=== PATIENT | male | born 1955 | race Two or more races ===

== ENCOUNTER 2018-07-21 08:04 | Emergency (ER) | payer OTHER ==
[2018-07-21 09:10] LABS: APPEARANCE,URINE CLEAR; BILIRUBIN,URINE NEGATIVE (NEGATIVE); COLOR,URINE YELLOW; GLUCOSE, URINE NEGATIVE (NEGATIVE); KETONES,URINE NEGATIVE (NEGATIVE); LEUKOCYTE ESTERASE,URINE NEGATIVE (NEGATIVE); NITRITE,URINE NEGATIVE (NEGATIVE); PROTEIN,URINE NEGATIVE (NEGATIVE); UROBILINOGEN,URINE NEGATIVE mg/dL (<2.0)
--- NOTE | 2018-07-21 09:31 | ER Document Report ---
ED General - General Chief Complaint: Flank Pain Stated Complaint: LOWER BACK PAIN Time Seen by Provider: 07/21/18 08:42 - HPI Notes: Patient is a 63-year-old male that presents to the emergency department for chief complaint of right flank pain. Patient had acute onset of pain in his right lower back/flank last night. The pain is sharp and radiates around into his right groin. He denies any dysuria but does state he is having a difficult time urinating. He denies seeing any blood in his urine. He does have a history of kidney stones and states this feels the same. He denies any nausea vomiting fevers chills or diarrhea. Patient states he drank a few shots this morning and took some ibuprofen and his pain has significantly improved. He does endorse daily alcohol consumption. He denies injury or trauma. He denies saddle anesthesia and lower extremity numbness or weakness. He denies IV drug use. Past Medical History: Arthritis Past Surgical History: Right shoulder rotator cuff repair Social History: Daily alcohol, daily tobacco, denies drug use Family History: Reviewed and noncontributory for presenting illness Allergies: Reviewed, see documented allergy list. REVIEW OF SYSTEMS: CONSTITUTIONAL : No fever No chills No diaphoresis No recent illness EENT: No vision changes No congestion No sore throat CARDIOVASCULAR: No chest pain No palpitations RESPIRATORY: No shortness of breath No cough No difficulty breathing GASTROINTESTINAL: No abdominal pain No nausea No vomiting No diarrhea GENITOURINARY: No dysuria No hematuria Right flank pain difficulty urinating MUSCULOSKELETAL: No back pain No leg pain No arm pain SKIN: No rashes No lesions LYMPHATIC: No swollen, enlarged glands. NEUROLOGICAL: No lightheadedness No headache No weakness No paresthesias PSYCHIATRIC: No anxiety No depression PHYSICAL EXAMINATION: Vital signs reviewed, nursing noted reviewed. GENERAL: Well-appearing, well-nourished and in no acute distress. HEAD: Atraumatic, normocephalic. EYES: Eyes appear normal, extraocular movements intact, sclera anicteric, co njunctiva are normal. ENT: nares patent, oropharynx clear without exudates. Moist mucous membranes. NECK: Normal range of motion, supple without lymphadenopathy LUNGS: Breath sounds clear to auscultation bilaterally and equal. No wheezes rales or rhonchi. HEART: Regular rate and rhythm without murmurs ABDOMEN: Soft, nontender, normoactive bowel sounds. No rebound, guarding, or rigidity. No masses appreciated. Back: Right lumbar paraspinal muscle tenderness, no peritoneal signs with CVA percussion bilaterally. EXTREMITIES: Nontender, good range of motion, no pitting or edema. NEUROLOGICAL: No focal neurological deficits. Moves all extremities spontaneously Motor and sensory grossly intact on exam. PSYCH: Normal mood, normal affect. SKIN: Warm, Dry, normal turgor, no rashes or lesions noted on exposed skin - Related Data Allergies/Adverse Reactions: No Known Allergies Allergy (Unverified 07/21/18 08:05) Past Medical History - Social History Smoking Status: Current Every Day Smoker Family History: Reviewed & Not Pertinent Patient has suicidal ideation: No Patient has homicidal ideation: No Renal/ Medical History: Denies: Hx Peritoneal Dialysis Physical Exam - Vital signs Vitals: Temp Pulse Resp BP Pulse Ox 98.1 F 95 16 129/73 H 99 07/21/18 08:09 07/21/18 08:09 07/21/18 08:09 07/21/18 08:09 07/21/18 08:09 Course - Re-evaluation Re-evalutation: 07/21/18 09:31 Vitals reviewed. Nursing notes reviewed. Patient is awake and in no acute distress. He took ibuprofen as well as alcohol prior to arrival and states his pain is much better and he is not requiring further pain medication. His u rinalysis is negative for infection or blood however he is still complaining of flank pain. CT will be ordered to evaluate for underlying ureterolithiasis. 07/21/18 11:48 Patient reevaluated and has remained hemodynamically stable. To ambulate without any difficulty. His CT scan shows no ureterolithiasis or other acute abnormality. Patient's lab work is unremarkable. He requested that I look at a rash on his scrotum which he states appeared in the last 1-2 weeks. He has a small skin tag on his lateral right scrotum with no surrounding erythema. There is no other rash. Patient will follow with his primary care doctor regarding his skin tag if it is irritating him. He will take ibuprofen at home as needed for pain. I counseled him on decreasing his alcohol consumption which he agreed with. He is stable at discharge. Laboratory 07/21/18 07/21/18 07/21/18 08:45 08:45 08:45 WBC 5.9 RBC 4.20 L Hgb 13.8 Hct 40.4 MCV 96 MCH 32.9 MCHC 34.2 RDW 14.3 H Plt Count 326 Seg Neutrophils % 61.8 Lymphocytes % 25.2 Monocytes % 7.4 Eosinophils % 4.5 Basophils % 1.1 Absolute Neutrophils 3.7 Absolute Lymphocytes 1.5 Absolute Monocytes 0.4 Absolute Eosinophils 0.3 Absolute Basophils 0.1 Sodium Potassium Chloride Carbon Dioxide Anion Gap BUN Creatinine Est GFR ( Amer) Est GFR (Non-Af Amer) Glucose Calcium Urine Color YELLOW Urine Appearance CLEAR Urine pH 5.0 Ur Specific [place] 1.020 Urine Protein NEGATIVE Urine Glucose (UA) NEGATIVE Urine Ketones NEGATIVE Urine Blood NEGATIVE Urine Nitrite NEGATIVE Urine Bilirubin NEGATIVE Urine Urobilinogen NEGATIVE Ur Leukocyte Esterase NEGATIVE Urine WBC (Auto) 1 Urine RBC (Auto) 0 U Hyaline Cast (Auto) 3 Urine Bacteria (Auto) TRACE Squamous Epi Cells Auto <1 Urine Mucus (Auto) RARE Urine Ascorbic Acid NEGATIVE Chlamydia DNA (PCR) NOT DETECTED N.gonorrhoeae DNA (PCR) NOT DETECTED 07/21/18 08:45 WBC RBC Hgb Hct MCV MCH MCHC RDW Plt Count Seg Neutrophils % Lymphocytes % Monocytes % Eosinophils % Basophils % Absolute Neutrophils Absolute Lymphocytes Absolute Monocytes Absolute Eosinophils Absolute Basophils Sodium 142.2 Potassium 4.4 Chloride 110 H Carbon Dioxide 23 Anion Gap 9 BUN 18 Creatinine 1.05 Est GFR ( Amer) > 60 Est GFR (Non-Af Amer) > 60 Glucose 72 L Calcium 9.2 Urine Color Urine Appearance Urine pH Ur Specific [place] Urine Protein Urine Glucose (UA) Urine Ketones Urine Blood Urine Nitrite Urine Bilirubin Urine Urobilinogen Ur Leukocyte Esterase Urine WBC (Auto) Urine RBC (Auto) U Hyaline Cast (Auto) Urine Bacteria (Auto) Squamous Epi Cells Auto Urine Mucus (Auto) Urine Ascorbic Acid Chlamydia DNA (PCR) N.gonorrhoeae DNA (PCR) Abdomen/Pelvis CT 07/21/18 09:29 IMPRESSION: 1. No noncontrast CT findings to explain right flank pain. 2. No evidence of urinary tract calculus. 3. Normal appendix. 4. Hepatic steatosis. 5. Calcific sludge or small gallstones in the gallbladder without evidence of acute cholecystitis. 07/21/18 11:53 - Vital Signs Vital signs: Temp Pulse Resp BP Pulse Ox 98.1 F 95 16 129/73 H 99 01/17/19 08:09 07/21/18 08:09 07/21/18 08:09 07/21/18 08:09 07/21/18 08:09 - Laboratory Result Diagrams: 07/21/18 08:45 07/21/18 08:45 Laboratory results interpreted by me: 07/21/18 07/21/18 08:45 08:45 RBC 4.20 L RDW 14.3 H Chloride 110 H Glucose 72 L Discharge - Discharge Clinical Impression: Flank pain Condition: Stable Disposition: HOME, SELF-CARE Instructions: Flank Pain ([facility]) Additional Instructions: Please return to the emergency department if you have any worsening, or concern of your symptoms. Please return to the emergency department if you develop chest pain, difficulty breathing, severe abdominal pain, or ongoing vomiting. Please follow-up with your primary care physician in 2-3 days and any other recommended physicians. If prescribed, take all medications as directed. If you have any questions or concerns do not hesitate to return the emergency department for evaluation. Referrals: [facility] [Provider Group] - Follow up in 3-5 days
[2018-07-21 09:40] LABS: ABSOLUTE BASOPHILS # (AUTO) 0.1 10^3/uL (0.0-0.2); ABSOLUTE EOSINOPHILS # (AUTO) 0.3 10^3/uL (0.0-0.6); ABSOLUTE LYMPHOCYTES (AUTO) 1.5 10^3/uL (0.5-4.7); ABSOLUTE MONOCYTES (AUTO) 0.4 10^3/uL (0.1-1.4); ABSOLUTE NEUT (AUTO) 3.7 10^3/uL (1.7-8.2); BASOPHILS % (AUTO) 1.1 % (0-2); EOSINOPHILS % (AUTO) 4.5 % (0-6); HEMATOCRIT 40.4 % (37.9-51.0); HEMOGLOBIN 13.8 g/dL (13.5-17.0); LYMPHOCYTES % (AUTO) 25.2 % (13-45); MEAN CORPUSCULAR HEMOGLOBIN 32.9 pg (27.0-33.4); MEAN CORPUSCULAR HGB CONC 34.2 g/dL (32.0-36.0); MEAN CORPUSCULAR VOLUME 96 fl (80-97); MONOCYTES % (AUTO) 7.4 % (3-13); PLATELET COUNT 326 10^3/uL (150-450); RED CELL DISTRIBUTION WIDTH 14.3 % (11.5-14.0); SEGMENTED NEUTROPHILS % (AUTO) 61.8 % (42-78); TOTAL CELLS COUNTED % (AUTO) 100 %; WHITE BLOOD COUNT 5.9 10^3/uL (4.0-10.5)
[2018-07-21 09:44] LABS: ANION GAP 9 (5-19); BLOOD UREA NITROGEN 18 mg/dL (7-20); CALCIUM 9.2 mg/dL (8.4-10.2); CARBON DIOXIDE 23 mmol/L (22-30); CHLORIDE 110 mmol/L (98-107); GLUCOSE 72 mg/dL (75-110); POTASSIUM 4.4 mmol/L (3.6-5.0); SODIUM 142.2 mmol/L (137-145)
--- NOTE | 2018-07-21 09:55 | RADIOLOGY REPORT (SQ) ---
EXAM DESCRIPTION: CT ABD/PELVIS NO ORAL OR IV COMPLETED DATE/TIME: 07/21/2018 9:44 am REASON FOR STUDY: RIGHT FLANK pain COMPARISON: None. TECHNIQUE: CT scan of the abdomen and pelvis performed without intravenous or oral contrast. Images reviewed with lung, soft tissue, and bone windows. Reconstructed coronal and sagittal MPR images revi ewed. All images stored on PACS. All CT scanners at this facility use dose modulation, iterative reconstruction, and/or weight based d osing when appropriate to reduce radiation dose to as low as reasonably achievable (ALARA). [facility]: Dose Right [facility]: CareDose [facility]: Dose Right [facility]: Teradose 4D [facility]: [employer] RADIATION DOSE: 367 mGy cm LIMITATIONS: None. FINDINGS: LOWER CHEST: No significant findings. No nodules or infiltrates. NON-CONTRASTED LIVER, SPLEEN, ADRENALS: Evaluation limited by lack of IV contrast. No identified sign ificant masses. Hepatic steatosis. Splenic calcifications consistent with prior granulomatous infec tion. PANCREAS: No masses. No peripancreatic inflammatory changes. GALLBLADDER: Calcific sludge or small gallstones. No evidence of acute cholecystitis. RIGHT KIDNEY AND URETER: No suspicious masses. Assessment limited by lack of IV contrast. No signif icant calcifications. No hydronephrosis or hydroureter. LEFT KIDNEY AND URETER: No suspicious masses. Assessment limited by lack of IV contrast. No signifi cant calcifications. No hydronephrosis or hydroureter. AORTA AND RETROPERITONEUM: No aneurysm. No retroperitoneal masses or adenopathy. Calcific atheroscle rosis. BOWEL AND PERITONEAL CAVITY: No obvious masses or inflammatory changes. No free fluid. APPENDIX: Normal. PELVIS, BLADDER, AND ABDOMINAL WALL:No abnormal masses. No free fluid. Bladder normal. BONES: No significant findings. OTHER: No other significant finding. IMPRESSION: 1. No noncontrast CT findings to explain right flank pain. 2. No evidence of urinary tract calculus. 3. Normal appendix. 4. Hepatic steatosis. 5. Calcific sludge or small gallstones in the gallbladder without evidence of acute cholecystitis. COMMENT: Quality ID # [id number]: Final reports with documentation of one or more dose reduction techniques (e.g., Automated exposure control, adjustment of the mA and/or kV according to patient size, use of iterative reconstruction technique) TECHNICAL DOCUMENTATION: JOB ID: [id number]- All Rights Reserved Reading location - IP/workstation name: [email or web address]
[2018-07-21 10:37] LABS: CHLAM PCR NOT DETECTED (NOT DETECT); GON PCR NOT DETECTED (NOT DETECT)
[2018-07-21 12:41] VITALS: BP 119/66
== END 2018-07-21 12:41 | disposition home or self-care (01) ==
LOC: ER 08:04
DX: R10.9 Unspecified abdominal pain (principal); M54.9 Dorsalgia, unspecified; F17.200 Nicotine dependence, unspecified, uncomplicated
CPT/HCPCS: 36415; 74176; 80048; 81001; 85025; 87491; 87591; 99284

== ENCOUNTER 2019-01-30 07:03 | Observation (INO) | payer OTHER ==
--- NOTE | 2019-01-30 07:16 | ER Document Report ---
ED General - General Chief Complaint: Chest Pain Stated Complaint: SHORTNESS OF BREATH Time Seen by Provider: 01/30/19 07:09 Notes: Patient presents with shortness of breath and left-sided chest pressure in the setting of intercourse. He is been drinking some alcohol, took erectile dysfunction medication, and had vigorous sexual intercourse. At the end of the intercourse he felt short of breath with chest pressure and felt like he could n ot calm down. This persisted throughout rest. EKG noted peaked T waves from EMS. He also feels dehydrated. Denies a history of COPD but is a heavy smoker, and his history of coronary disease but has risk factors. No fevers. Feels slightly better now than he did. TRAVEL OUTSIDE OF THE [place] IN LAST 30 DAYS: No - Related Data Allergies/Adverse Reactions: No Known Allergies Allergy (Unverified 07/21/18 08:05) Past Medical History - Social History Smoking Status: Current Every Day Smoker Smoking Education Provided: Yes - The patient ED visit today was directly related to their abuse of tobacco. Family History: Reviewed & Not Pertinent Renal/ Medical History: Denies: Hx Peritoneal Dialysis Review of Systems - Review of Systems Notes: REVIEW OF SYSTEMS GEN: Denies fever, chills, weight loss ENT: Denies sore throat, nasal discharge, ear pain EYES: Denies blurry vision, eye pain, discharge CV: Sided chest pressure RESP: As of breath GI: Denies abdominal pain, nausea, vomiting, diarrhea MSK: Denies joint pain/swelling, edema, SKIN: Denies rash, skin lesions LYMPH: Denies swollen glands/lymph nodes NEURO: Denies headache, focal weakness or numbness, dizziness PSYCH: Denies depression, suicidal or homicidal ideation PHYSICAL EXAMINATION General: No acute distress, well-nourished Head: Atraumatic, normocephalic ENT: Mouth normal, oropharynx moist, no exudates or tonsillar enlargement Eyes: Conjunctiva normal, pupils equal, lids normal Neck: No JVD, supple, no guarding CVS: Normal rate, regular rhythm, no murmurs Resp: No resp distress, equal and normal breath sounds bilaterally GI: Nondistended, soft, no tenderness to palpation, no rebound or guarding Ext: No deformities, no edema, normal range of motion in upper and lower ext Back: No CVA or midline TTP Skin: No rash, warm Lymphatic: No lymphadeopathy noted Neuro: Awake, alert. Face symmetric. GCS 15. Physical Exam - Vital signs Vitals: Temp Pulse Resp BP Pulse Ox 98.4 F 59 L 12 140/87 H 100 01/30/19 07:04 01/30/19 07:04 01/30/19 07:04 01/30/19 07:04 01/30/19 07:04 Course - Re-evaluation Re-evalutation: 01/30/19 07:16 Patient presents with exertional cardiopulmonary symptoms concerning for angina. COPD could also be contributing even though he has not had a diagnosis. He feels dehydrated and he has peak T waves, so renal failure could be a problem. We will do serial serial EKGs. He may not have nitroglycerin given his recent use of anti-erectile dysfunction medications. Heart score is 7 01/30/19 07:17 01/30/19 08:16 pain free trop detected not pos repeat ecg unch admitted- hosp [facility] - Vital Signs Vital signs: Temp Pulse Resp BP Pulse Ox 98.4 F 59 L 12 140/87 H 100 01/30/19 07:04 01/30/19 07:04 01/30/19 07:04 01/30/19 07:04 01/30/19 07:04 - Laboratory Result Diagrams: 01/30/19 06:49 01/30/19 06:49 Laboratory results interpreted by me: 01/30/19 06:49 RBC 4.15 L MCV 98 H RDW 14.3 H - Diagnostic Test Radiology reviewed: Image reviewed, Reports reviewed - EKG Interpretation by Dc EKG shows normal: Sinus rhythm Rate: Normal Rhythm: NSR Voltage: Increased voltage - Peak T waves throughout the precordial leads Additional EKG results interpreted by me: 01/30/19 08:05 2nd ECG: unchanged Discharge - Discharge Clinical Impression: Unstable angina Condition: Good Disposition: ADMITTED INPATIENT Admitting Provider: Kristopher (Hospitalist) Unit Admitted: Telemetry
[2019-01-30 07:34] LABS: ABSOLUTE BASOPHILS # (AUTO) 0.1 10^3/uL (0.0-0.2); ABSOLUTE EOSINOPHILS # (AUTO) 0.3 10^3/uL (0.0-0.6); ABSOLUTE LYMPHOCYTES (AUTO) 1.8 10^3/uL (0.5-4.7); ABSOLUTE MONOCYTES (AUTO) 0.7 10^3/uL (0.1-1.4); ABSOLUTE NEUT (AUTO) 4.4 10^3/uL (1.7-8.2); BASOPHILS % (AUTO) 0.9 % (0-2); EOSINOPHILS % (AUTO) 3.8 % (0-6); HEMATOCRIT 40.7 % (37.9-51.0); HEMOGLOBIN 13.7 g/dL (13.5-17.0); LYMPHOCYTES % (AUTO) 25.3 % (13-45); MEAN CORPUSCULAR HEMOGLOBIN 33.1 pg (27.0-33.4); MEAN CORPUSCULAR HGB CONC 33.7 g/dL (32.0-36.0); MEAN CORPUSCULAR VOLUME 98 fl (80-97); MONOCYTES % (AUTO) 9.7 % (3-13); PLATELET COUNT 282 10^3/uL (150-450); RED BLOOD COUNT 4.15 10^6/uL (4.35-5.55); RED CELL DISTRIBUTION WIDTH 14.3 % (11.5-14.0); SEGMENTED NEUTROPHILS % (AUTO) 60.3 % (42-78); TOTAL CELLS COUNTED % (AUTO) 100 %; WHITE BLOOD COUNT 7.3 10^3/uL (4.0-10.5)
[2019-01-30 07:50] LABS: ANION GAP 10 (5-19); BLOOD UREA NITROGEN 10 mg/dL (7-20); CALCIUM 9.5 mg/dL (8.4-10.2); CARBON DIOXIDE 25 mmol/L (22-30); CHLORIDE 104 mmol/L (98-107); GLUCOSE 97 mg/dL (75-110); POTASSIUM 4.5 mmol/L (3.6-5.0)
--- NOTE | 2019-01-30 08:00 | RADIOLOGY REPORT (SQ) ---
EXAM DESCRIPTION: X-ray single view chest. CLINICAL HISTORY: 63 years Male, SOB, xmoker COMPARISON: None. TECHNIQUE: Single portable x-ray view of the chest performed on 01/30/2019 at 7:26 AM FINDINGS: The lungs are well expanded and are clear. There is no evidence of a pneumothorax. The cardiac silhouette is normal in size and configuration. The mediastinal contours are normal. No acute osseous abnormality is identified. No focal soft tissue abnormalities are seen. Lines and tubes: None. IMPRESSION: No evidence of acute intrathoracic disease.
[2019-01-30] MEDS ORDERED: ASPIRIN 81 MG TABLET, CHEWABLE PO ONE (08:04)
--- NOTE | 2019-01-30 14:46 | EKG REPORT ---
SEVERITY:- ABNORMAL ECG - ATRIAL FIBRILLATION BORDERLINE LEFT AXIS DEVIATION LOW VOLTAGE IN FRONTAL LEADS : Confirmed by: Latrice Leblanc MD 30-Jan-2019 14:45:46
--- NOTE | 2019-01-30 14:46 | EKG REPORT ---
SEVERITY:- OTHERWISE NORMAL ECG - SINUS RHYTHM BORDERLINE PROLONGED QT INTERVAL : Confirmed by: Latrice Leblanc MD 30-Jan-2019 14:45:20
--- NOTE | 2019-01-30 14:46 | EKG REPORT ---
SEVERITY:- BORDERLINE ECG - SINUS RHYTHM BORDERLINE PROLONGED QT INTERVAL : Confirmed by: Latrice Leblanc MD 30-Jan-2019 14:45:41
[2019-01-30 16:06] VITALS: BP 146/76
[2019-01-30 17:38] LABS: CREATINE KINASE MB 66.1 ng/mL (<4.55)
[2019-01-30 17:45] LABS: TROPONIN I 21.7 ng/mL
[2019-01-30] MEDS ORDERED: HEPARIN SOD (PORCINE) 1,000 UNIT/ML 10 ML VIAL IV ONE (18:38)
[2019-01-30] MEDS ORDERED: HEPARIN SODIUM,PORCINE/D5W 25,000 UNIT/250 ML RTUINJ IV PRN (18:38)
[2019-01-30] MEDS ORDERED: NORMAL SALINE 1000 ML 1,000 ML IV PRN (18:44)
--- NOTE | 2019-01-30 18:49 | PDOC H&P ---
History of Present Illness Admission Date/PCP: 01/30/19 08:32 Patient complains of: 63-year-old male who comes in with a history of chest pain. She states around 4 AM this morning he took the generic of Viagra and following sexual intercourse started having chest pain. Patient states that it lasted about 30 minutes and then after it went away he called EMS. Patient states the pain did not radiate up into his neck did not go into his left arm he had no nausea no vomiting. Patient is taken his medication for about the last 2 years with no problems. Patient states that he has been on the Viagra for a couple years this is only the second time he is ever taken this generic called "Cynthia" she states he took 50 mg. She denies any previous MIs but he does state that he is seeing cardiology just as a routine measure. Her graph blood pressure this morning was 130/85 pulse was 77 sat was 99% on room air respirations 9 History of Present Illness: DHEERAJ PEDERSEN is a 63 year old male Past Medical History Cardiac Medical History: Reports: Myocardial Infarction Pulmonary Medical History: Reports: None Psychiatric Medical History: Reports: Depression Past Surgical History Past Surgical History: Reports: Herniorrhaphy, Orthopedic Surgery Social History Smoking Status: Current Every Day Smoker Cigarettes Packs Per Day: 0.5 Hx Recreational Drug Use: No Drugs: None - Advance Directive Resuscitation Status: Full Code Family History Family History: Reviewed & Not Pertinent Parental Family History Reviewed: Yes - Father is alive at 92 but does have a some sort of cardiac aneurysm Children Family History Reviewed: No Sibling(s) Family History Reviewed.: No Medication/Allergy Home Medications: Bupropion HCl [Wellbutrin Xl 150 mg 24hr Tablet] 150 mg PO DAILY 01/30/19 Allergies/Adverse Reactions: No Known Allergies Allergy (Unverified 07/21/18 08:05) Review of Systems Constitutional: PRESENT: as per HPI Cardiovascular: PRESENT: as per HPI Respiratory: PRESENT: as per HPI Gastrointestinal: PRESENT: as per HPI Neurological: PRESENT: as per HPI Psychiatric: PRESENT: as per HPI Physical Exam Vital Signs: Temp Pulse Resp BP Pulse Ox 98.6 F 58 L 16 146/76 H 100 01/30/19 15:35 01/30/19 15:35 01/30/19 15:35 01/30/19 15:35 01/30/19 15:35 Intake & Output 01/29/19 01/30/19 01/31/19 06:59 06:59 06:59 Intake Total 420 Balance 420 Weight 73 kg General appearance: PRESENT: no acute distress Head exam: PRESENT: atraumatic, normocephalic Respiratory exam: PRESENT: clear to auscultation rustam. ABSENT: rales, rhonchi, wheezes Cardiovascular exam: PRESENT: RRR. ABSENT: diastolic murmur, rubs, systolic murmur Neurological exam: PRESENT: alert, awake, oriented to person, oriented to place, oriented to time, oriented to situation, CN II-XII grossly intact. ABSENT: motor sensory deficit Psychiatric exam: PRESENT: appropriate affect, normal mood. ABSENT: homicidal ideation, suicidal ideation Results Laboratory Results: 01/30/19 06:49 01/30/19 06:49 01/30/19 01/30/19 06:49 06:49 WBC 7.3 RBC 4.15 L Hgb 13.7 Hct 40.7 MCV 98 H MCH 33.1 MCHC 33.7 RDW 14.3 H Plt Count 282 Seg Neutrophils % 60.3 Lymphocytes % 25.3 Monocytes % 9.7 Eosinophils % 3.8 Basophils % 0.9 Absolute Neutrophils 4.4 Absolute Lymphocytes 1.8 Absolute Monocytes 0.7 Absolute Eosinophils 0.3 Absolute Basophils 0.1 Sodium 138.5 Potassium 4.5 Chloride 104 Carbon Dioxide 25 Anion Gap 10 BUN 10 Creatinine 0.99 Est GFR ( Amer) > 60 Est GFR (Non-Af Amer) > 60 Glucose 97 Calcium 9.5 01/30/19 01/30/19 01/30/19 06:49 15:11 15:11 Creatine Kinase 533 H CK-MB (CK-2) Troponin I 0.058 Cancelled 01/30/19 17:00 Creatine Kinase CK-MB (CK-2) 66.10 H Troponin I 21.700 Impressions: Chest X-Ray 01/30/19 07:14 IMPRESSION: No evidence of acute intrathoracic disease. Assessment and Plan - Diagnosis (1) Tobacco abuse Is this a current diagnosis for this admission?: Yes Plan: 01/30/2019 patient will be offered NicoDerm patch (2) Unstable angina Is this a current diagnosis for this admission?: Yes Plan: 01/30/2019 patient will be admitted for cardiology consult rule out - Time Time Spent with patient: 35 or more minutes
[2019-01-30] MEDS ORDERED: HEPARIN SOD (PORCINE) 1,000 UNIT/ML 10 ML VIAL IV PRN (19:00)
[2019-01-30] MEDS ORDERED: ENOXAPARIN SODIUM INJ 80 MG/0.8 ML DISP.SYRIN SUBCUT ONE (19:15)
[2019-01-30] MEDS ORDERED: METOPROLOL TARTRATE 25 MG TABLET PO ONE (19:15)
--- NOTE | 2019-01-30 19:20 | PDOC TRANSFER SUMMARY ---
General Admission Date/PCP: 01/30/19 08:32 Resuscitation Status: Full Code - Transfer Diagnosis (1) Tobacco abuse Is this a current diagnosis for this admission?: Yes Diagnosis Summary: 01/30/2019 patient has not been in the facility long enough to address this issue than discussion in the ER by myself (2) Unstable angina Is this a current diagnosis for this admission?: Yes Diagnosis Summary: 01/30/2019 patient was seen in the ER for chest pain that had resolved by the time he arrived in the ER. Only one troponin was drawn this morning and this afternoon the second troponin and CK-MB was drawn both were elevated patient was seen by cardiology and after troponins were was found to be elevated it was decided the patient should be transferred to a higher level of care for cardiac catheterization or NSTEMI . Patient did receive aspirin in the emergency room and once it was seen that the patient had elevated troponin and CK-MB index patient was started on Toprol 25 mg p.o. given a heparin bolus 4000 units and then a drip at 900 mL's per hour. Patient was accepted at a formerly [facility] by Dr. Abdalla. Patient is hemodynamically stable having no pain discussed the care with the patient and told him the plan answered all of his questions patient seems satisfied with his visit here. - Transfer Medications Home Medications: Bupropion HCl [Wellbutrin Xl 150 mg 24hr Tablet] 150 mg PO DAILY 01/30/19 Transfer Medications: Current Medications Bupropion HCl (Wellbutrin 100 Mg Tablet) 50 mg PO Q8 SHEA Stop: 03/01/19 21:59 Heparin Sodium (Porcine) (Heparin Inj 1,000 Unit/Ml 10 Ml Vial) 0 - 12,000 unit IV .BOLUS PER PROTOCOL PRN; Protocol PRN Reason: RESPOND TO aPTT VALUES Stop: 03/01/19 18:59 Heparin Sodium/Dextrose (Heparin Rtu 25,000 Unit/250 Ml D5w Premix) 25,000 unit in 250 mls @ 0 mls/hr IV CONTINUOUS PRN; Protocol PRN Reason: THIS MED IS NOT "PRN" Stop: 03/01/19 18:37 Last Admin: 01/30/19 19:04 Dose: 8.76 mls/hr, 8.76 mls/hr Documented by: Sodium Chloride (Nacl 0.9% 1000 Ml Iv Soln) 1,000 mls @ 30 mls/hr IV CONTINUOUS PRN PRN Reason: THIS MED IS NOT "PRN" Stop: 03/01/19 18:43 Metoprolol Tartrate (Lopressor 25 Mg Tablet) 25 mg PO NOW ONE Stop: 01/30/19 19:16 Last Admin: 01/30/19 18:56 Dose: 25 mg Documented by: Sodium Chloride (Saline Flush 2.5 Ml Monoject Prefil Syrin) 2.5 ml IV Q8 SHEA Stop: 03/01/19 13:59 Last Admin: 01/30/19 13:35 Dose: Not Given Documented by: - Allergies Allergies/Adverse Reactions: No Known Allergies Allergy (Unverified 07/21/18 08:05) Physical Exam Vital Signs: Temp Pulse Resp BP Pulse Ox 98.6 F 58 L 16 146/76 H 100 01/30/19 15:35 01/30/19 15:35 01/30/19 15:35 01/30/19 15:35 01/30/19 15:35 Intake & Output 01/29/19 01/30/19 01/31/19 06:59 06:59 06:59 Intake Total 870 Output Total 1000 Balance -130 Weight 73 kg General appearance: PRESENT: no acute distress Head exam: PRESENT: atraumatic Respiratory exam: PRESENT: accessory muscle use Cardiovascular exam: PRESENT: RRR. ABSENT: diastolic murmur, rubs, systolic murmur Rectal exam: PRESENT: deferred Neurological exam: PRESENT: alert, awake, oriented to person, oriented to place, oriented to time, oriented to situation, CN II-XII grossly intact. ABSENT: motor sensory deficit Psychiatric exam: PRESENT: appropriate affect, normal mood. ABSENT: homicidal ideation, suicidal ideation Results Laboratory Results: 01/30/19 06:49 01/30/19 06:49 01/30/19 01/30/19 06:49 06:49 WBC 7.3 RBC 4.15 L Hgb 13.7 Hct 40.7 MCV 98 H MCH 33.1 MCHC 33.7 RDW 14.3 H Plt Count 282 Seg Neutrophils % 60.3 Lymphocytes % 25.3 Monocytes % 9.7 Eosinophils % 3.8 Basophils % 0.9 Absolute Neutrophils 4.4 Absolute Lymphocytes 1.8 Absolute Monocytes 0.7 Absolute Eosinophils 0.3 Absolute Basophils 0.1 Sodium 138.5 Potassium 4.5 Chloride 104 Carbon Dioxide 25 Anion Gap 10 BUN 10 Creatinine 0.99 Est GFR ( Amer) > 60 Est GFR (Non-Af Amer) > 60 Glucose 97 Calcium 9.5 01/30/19 01/30/19 01/30/19 06:49 15:11 15:11 Creatine Kinase 533 H CK-MB (CK-2) Troponin I 0.058 Cancelled 01/30/19 17:00 Creatine Kinase CK-MB (CK-2) 66.10 H Troponin I 21.700 Impressions: Chest X-Ray 01/30/19 07:14 IMPRESSION: No evidence of acute intrathoracic disease. Status: Image reviewed by me - EKG Plan Time Spent: Greater than 30 Minutes - Transfer was established to [facility] ,accepting physician was made and tele-forms were for signed. Care and plan was discussed with the patient with nurses in the room.
[2019-01-30 19:25] LABS: INTERNATIONAL RATION (INR) 0.94; PROTHROMBIN TIME 12.5 SEC (11.4-15.4)
[2019-01-30 19:25] LABS: ABSOLUTE BASOPHILS # (AUTO) 0.1 10^3/uL (0.0-0.2); ABSOLUTE EOSINOPHILS # (AUTO) 0.1 10^3/uL (0.0-0.6); ABSOLUTE LYMPHOCYTES (AUTO) 1.1 10^3/uL (0.5-4.7); ABSOLUTE MONOCYTES (AUTO) 0.7 10^3/uL (0.1-1.4); ABSOLUTE NEUT (AUTO) 5.7 10^3/uL (1.7-8.2); EOSINOPHILS % (AUTO) 0.8 % (0-6); HEMATOCRIT 40.4 % (37.9-51.0); HEMOGLOBIN 13.4 g/dL (13.5-17.0); LYMPHOCYTES % (AUTO) 14.3 % (13-45); MEAN CORPUSCULAR HEMOGLOBIN 32.8 pg (27.0-33.4); MEAN CORPUSCULAR HGB CONC 33.1 g/dL (32.0-36.0); MEAN CORPUSCULAR VOLUME 99 fl (80-97); MONOCYTES % (AUTO) 8.8 % (3-13); PLATELET COUNT 259 10^3/uL (150-450); RED BLOOD COUNT 4.07 10^6/uL (4.35-5.55); RED CELL DISTRIBUTION WIDTH 14.1 % (11.5-14.0); SEGMENTED NEUTROPHILS % (AUTO) 75.1 % (42-78); TOTAL CELLS COUNTED % (AUTO) 100 %; WHITE BLOOD COUNT 7.6 10^3/uL (4.0-10.5)
[2019-01-30 19:26] LABS: PARTIAL THROMBOPLASTIN TIME 35.2 SEC (23.5-35.8)
--- NOTE | 2019-01-30 21:40 | XCELERA REPORT ---
[address] [address] Transthoracic Echocardiogram Report Name: DHEERAJ PEDERSEN Age: 63 yrs Gender: Male : 1955 Patient Status: Inpatient Patient Location: [address] [place] [address] Study Date: 01/30/2019 02:59 PM Height: 70 in Weight: 160 lb BSA: 1.9 m2 Procedure: A two-dimensional transthoracic echocardiogram with color flow and Doppler was performed. Study Quality: Good. Reason For Study: chest pain History: Chest Pain. Ordering Physician: YENY GUZMAN Performed By: Diana Bower Interpretation Summary The left ventricle is normal in size. There is normal left ventricular wall thickness. LV EF is 55% Left ventricular systolic function is low normal. Doppler measurements suggest impaired left ventricular relaxation, which is associated with grade I/IV or mild diastolic dysfunction All LV apical segments are hypokinetic.Rest of the LV correa contract normally. There is no thrombus. There is no ventricular septal defect visualized. The right ventricle is mildly dilated. There is mild right ventricular hypertrophy. The right ventricular systolic function is normal. The right atrium is normal. The left atrial size is normal. The interatrial septum is intact with no evidence for an atrial septal defect. There is no Doppler evidence for an interatrial shunt There is mild mitral annular calcification. There is no evidence of mitral valve prolapse. There is no vegetation seen on the mitral valve. There is no mitral valve stenosis. There is a mild amount of mitral regurgitation There is no aortic valvular vegetation. There is moderate to severe aortic stenosis Calculated YESI = 0.9 cm2. There is a peak gradient of of 51 mm of Hg , amd mean gradient of 38 mm mm of Hg. There is no LVOT obstruction. No aortic regurgitation is present. There is no tricuspid stenosis. There is a mild to moderate amount of tricuspid regurgitation There is moderate pulmonary hypertension by echo RVSP is 51 mm of Hg , with RA mean of 10. There is no pulmonic valvular stenosis. There is no pulmonic valvular regurgitation. The aortic root is normal size. The inferior vena cava appeared normal and decreased > 50% with respiration (RAP 5-10 mmHg) There is no pericardial effusion. MMode/2D Measurements & Calculations RVDd: 3.6 cm LVIDd: 5.2 cm FS: 30.6 % Ao root diam: 3.6 cm IVSd: 1.0 cm LVIDs: 3.6 cm EDV(Teich): Ao root area: LVPWd: 0.96 cm 132.3 ml 10.2 cm2 ESV(Teich): 56.0 mlLA dimension: 3.6 cm EF(Teich): 57.7 % LVOT diam: 2.3 cmLVLd ap4: 8.9 cm SV(MOD-sp4): LVOT area: EDV(MOD-sp4): 50.0 ml 100.0 ml 4.0 cm2 LVLs ap4: 7.9 cm ESV(MOD-sp4): 50.0 ml EF(MOD-sp4): 50.0 % Doppler Measurements & Calculations MV E max hola: MV P1/2t max hola: Ao V2 max: LV V1 max P.4 cm/sec 65.5 cm/sec 355.8 cm/sec 2.1 mmHg MV A max hola: MV P1/2t: 95.9 msec Ao max PG: LV V1 mean P.7 cm/sec MVA(P1/2t): 2.3 cm2 50.6 mmHg 0.94 mmHg MV E/A: 0.89 MV dec slope: Ao V2 mean: LV V1 max: 199.9 cm/sec2 272.2 cm/sec 71.6 cm/sec MV dec time: 0.32 secAo mean PG: LV V1 mean: 32.6 mmHg 44.7 cm/sec Ao V2 VTI: 91.2 cm LV V1 VTI: 19.5 cm YESI(I,D): 0.86 cm2 YESI(V,D): 0.81 cm2 SV(LVOT): 78.6 ml PA V2 max: TR max hola: MV P1/2t-pr_phl: 81.9 cm/sec 331.0 cm/sec 95.9 msec PA max P.7 mmHg TR max P.8 mmHg Left Ventricle The left ventricle is normal in size. There is normal left ventricular wall thickness. LV EF is 55%. Left ventricular systolic function is low normal. Doppler measurements suggest impaired left ventricular relaxation, which is associated with grade I/IV or mild diastolic dysfunction. All LV apical segments are hypokinetic.Rest of the LV correa contract normally. There is no thrombus. There is no ventricular septal defect visualized. Right Ventricle The right ventricle is mildly dilated. There is mild right ventricular hypertrophy. The right ventricular systolic function is normal. Atria The right atrium is normal. The left atrial size is normal. The interatrial septum is intact with no evidence for an atrial septal defect. There is no Doppler evidence for an interatrial shunt. Mitral Valve There is mild mitral annular calcification. There is no evidence of mitral valve prolapse. There is no vegetation seen on the mitral valve. There is no mitral valve stenosis. There is a mild amount of mitral regurgitation. Aortic Valve There is no aortic valvular vegetation. There is a peak gradient of of 51 mm of Hg , amd mean gradient of 38 mm mm of Hg. There is moderate to severe aortic stenosis. Calculated YESI = 0.9 cm2. There is no LVOT obstruction. No aortic regurgitation is present. Tricuspid Valve There is no tricuspid stenosis. There is a mild to moderate amount of tricuspid regurgitation. There is moderate pulmonary hypertension by echo. RVSP is 51 mm of Hg , with RA mean of 10. Pulmonic Valve There is no pulmonic valvular stenosis. There is no pulmonic valvular regurgitation. Great Vessels The aortic root is normal size. The inferior vena cava appeared normal and decreased > 50% with respiration (RAP 5-10 mmHg). Effusions There is no pericardial effusion. : YENY GUZMAN > Latrice Leblanc
[2019-01-30] MEDS ORDERED: BUPROPION HCL 100 MG TABLET PO SCH (22:00)
--- NOTE | 2019-01-30 22:30 | PDOC CONSULTATION ---
Consultation-Blank Consultation: CARDIOLOGY CONSULTATION by Dr. Latrice Leblanc on 01/30/2019. Patient seen earlier this morning around 1:30 PM and subsequently seen at 4:30 PM. A total of 60 minutes spent on this patient more than 50% of time spent in direct patient care. REASON FOR CONSULTATION: Patient with chest pain with elevated troponin I consistent with non-ST elevation VT. CONSULT requesting provider: Juan Manuel vinny, nurse practitioner, [facility]. HISTORY OF present ILLNESS: Patient is a 63-year-old male with known prior history of myocardial infarction, unknown medical treatment, who after sexual intercourse had sudden onset of shortness of breath with diaphoresis and generalized feeling of fatigue and chest pressure lasting for 20 minutes. His fiance noticed that the patient was pale and clammy. The patient denies any palpitations or syncope or near syncopal symptoms. There is no PND orthopnea. The symptoms resolved after 20 minutes. The patient came to the emergency room where his EKG showed tall peaked T waves with a normal potassium level, hence very suspicious for myocardial infarction. Subsequently the patient's troponin was significantly elevated at 21, and subsequent EKG showed Q waves in V1 to V4 with diphasic T wave changes in the anterior leads suggestive of recent myocardial infarction. The patient subsequent to admission had a brief spell spell of chest pressure which resolved. The patient has already been on aspirin, and received beta-randy. He is also has been started on IV heparin at full dose. I have strongly recommended the patient have a cardiac catheterization. I have explained to the patient his cardiac catheterization can be done here, but if if a suitable lesion found that the patient may require intervention which can be done either here, or if the lesion is more complex than the patient needs to be transferred to [facility] for further percutaneous intervention if suitable lesions found. The patient did not want to have cardiac catheterization done here. He wanted to be transferred to tertiary care center where they could address PCI if indicated at the same setting of cardiac catheterization. The patient is aware of the risks and benefits of cardiac catheterization. Of note the patient had taken Viagra prior to the sexual intercourse earlier this morning. Hence would avoid nitrates for at least 24 hours. Past Medical History Cardiac Medical History: Reports: Myocardial Infarction. The patient is very sketchy about these details. But he is not on any treatment for this. He denies hypertension. There is no history of diabetes mellitus or thyroid disease. There is no history of TIA CVA symptoms. There is no history of COPD, asthma or sleep apnea. No history of pulmonary embolism. Pulmonary Medical History: Reports: None Psychiatric Medical History: Reports: Depression, and PTSD. Past Surgical History Past Surgical History: Reports: Herniorrhaphy, Orthopedic Surgery involving both shoulders. Social History Smoking Status: Current Every Day Smoker Cigarettes Packs Per Day: 0.5 Hx Recreational Drug Use: No Drugs: None The patient states that he does drink every day, but the quantity is not very clear. - Advance Directive Resuscitation Status: Full Code. The patient's fianc is a surrogate healthcare decision maker. Family History Family History: Father is alive at 92 but does have a some sort of aortic aneurysm. He states his mother of a ruptured aneurysm. Medication/Allergy Home Medications: Bupropion HCl [Wellbutrin Xl 150 mg 24hr Tablet] 150 mg PO DAILY 01/30/19 Allergies/Adverse Reactions:No Known Allergies. Review of Systems Constitutional: Denies any fever chills or rigors. DENIES ANY GENERALIZED FATIGUE OR MALAISE EXCEPT WHEN HE HAD CHEST PRESSURE AFTER THE SEXUAL INTERCOURSE TODAY. Head: Denies history of headaches or migraines. No history of head injury. EYES:. No history of amblyopia diplopia. No history of amaurosis fugax. EARS: No history of vertigo. No history of recurrent ear infections. Nose tinnitus. NOSE: No history of nosebleeds. No history of hayfever. MOUTH: No history of altered taste sensation. No ulcers in the mouth. THROAT: No history of odynophagia or dysphagia. No recurrent sore throats. SKIN: No history of pruritus. No allergic discoloration of the skin. No history of eczema or skin cancer. NECK: No history of swelling in the neck. No neck pain. LUNGS: No history of asthma or COPD. No history of sleep apnea. No history of pulmonary embolism. No symptoms of symptoms suggestive of upper or lower respiratory tract infection. No hemoptysis. No pleuritic chest pain. HEART: Denies hypertension or cardiac arrhythmia. No history of congestive heart failure. Claims he was told he had a prior myocardial infarction. Patient admitted with chest pains and EKG and suggestive of a acute myocardial infarction. No history of PND orthopnea palpitations or syncope. ENDOCRINE: No history of diabetes mellitus. No history of thyroid disease. No history of polydipsia polyuria. No history of heat or cold intolerance. MUSCULOSKELETAL: Denies arthritis or collagen vascular disease. RENAL: No history of chronic kidney disease. No history of hematuria pyuria or dysuria. DIRECTOR RECORDS MANAGEMENT: No history of TIA CVA. No history of headaches migraines or seizures. PSYCHIATRIC: History of depression. Well-controlled with current medication. History of PTSD. No history of suicidal ideation. No history of homicidal ideation. VASCULAR: No history of DVT. No history of calf or buttock claudication. HEMATOLOGICAL: No history of bleeding diathesis. No history of clotting disorders. Physical EXAMINATION: The patient is well-built and well-nourished. At present in no acute distress. He is well-groomed Selected Entries 01/30/19 15:35 Temperature 98.6 F Temperature Oral Source Pulse Rate 58 L Respiratory 16 Rate Blood Pressure 146/76 H Blood Pressure 99 Mean BP Location Right Arm BP Position Supine O2 Sat by Pulse 100 Oximetry Oxygen Delivery Room Air Method HEAD: Is atraumatic normocephalic. EYES: Pupils are equal round regular reactive to light accommodation. Extraocular movements are normal. There is no conjunctival pallor. There is no scleral icterus. EARS: Tympanic membranes are intact. External auditory canals are clear. NOSE: There is no deviated nasal septum. There is no inflammation nasal mucous membrane. MOUTH: Mucous membranes of mouth are moist. Tongue is moist. There is no ulcers. There is no bleeding from the gums. THROAT: There is no redness of the oropharynx. There is no exudates. SKIN: There is no skin rashes. There is no skin lesions. There is no particular ecchymosis. NECK: Is supple. There is no JVD. Carotids are equal there is no bruit. There is transmitted murmur from the aortic area to all both carotids. There is no accessory muscles of respiration use. There seems to be some carotid delay. Trachea central. LUNGS: Is clear to auscultation percussion without any rhonchi rales wheezing. There is no chest wall tenderness on percussion. HEART: S1-S2 is heard. There is no S3 gallop. There is no S4 gallop. There is murmur of aortic stenosis present A2 is slightly diminished. There is no thrill. There is no murmur of aortic regurgitation. No significant mitral regurgitation or tricuspid regurgitation murmur heard. There is no rub. ABDOMEN: Soft. Nontender. There is no paraspinal megaly. Bowel sounds well heard. EXTREMITIES: Femorals are well felt. There is no femoral bruits. Leg pulses are well felt. There is no pedal edema. There is no DVT or cellulitis. There is no calf tenderness. There is no cyanosis or clubbing DIRECTOR RECORDS MANAGEMENT: The patient is awake alert oriented times with no focal deficit. PSYCHIATRIC: The patient judgment insight are intact his affect is normal. Current Medications Discontinued Medications Generic Name Dose Route Start Last Admin Trade Name Freq PRN Reason Stop Dose Admin Aspirin 324 mg 01/30/19 08:04 01/30/19 08:08 Aspirin 81 Mg Chewable Tablet PO 01/30/19 08:05 324 mg NOW ONE Administration Bupropion HCl 50 mg 01/30/19 22:00 01/30/19 21:08 Wellbutrin 100 Mg Tablet PO 03/01/19 21:59 50 mg Q8 SHEA Administration Heparin Sodium (Porcine) 4,000 unit 01/30/19 18:38 01/30/19 18:57 Heparin Inj 1,000 Unit/Ml 10 Ml Vial IV 01/30/19 18:39 4,000 unit NOW ONE Administration Heparin Sodium (Porcine) 0 - 12,000 unit 01/30/19 19:00 Heparin Inj 1,000 Unit/Ml 10 Ml Vial IV 03/01/19 18:59 .BOLUS PER PROTOCOL PRN RESPOND TO aPTT VALUES Protocol Heparin Sodium/Dextrose 25,000 unit in 250 mls @ 0 mls/hr 01/30/19 18:38 01/30/19 19:04 Heparin Rtu 25,000 Unit/250 Ml D5w Premix IV 03/01/19 18:37 8.76 mls/hr CONTINUOUS PRN 8.76 mls/hr THIS MED IS NOT "PRN" Administration Protocol Titrate Sodium Chloride 1,000 mls @ 30 mls/hr 01/30/19 18:44 Nacl 0.9% 1000 Ml Iv Soln IV 03/01/19 18:43 CONTINUOUS PRN THIS MED IS NOT "PRN" Metoprolol Tartrate 25 mg 01/30/19 19:15 01/30/19 18:56 Lopressor 25 Mg Tablet PO 01/30/19 19:16 25 mg NOW ONE Administration Sodium Chloride 2.5 ml 01/30/19 14:00 01/30/19 21:09 Saline Flush 2.5 Ml Monoject Prefil Syrin IV 03/01/19 13:59 Not Given Q8 SHEA The patient's initial EKG showed sinus rhythm with hyperacute T waves suggestive of ischemia. Subsequent EKG shows Q waves in the anterior leads V1 to V4 with biphasic T waves in the anterior leads suggestive of recent myocardial i nfarction. Note that the patient's troponin I is significantly elevated. Labs- Entire Visit 01/30/19 01/30/19 01/30/19 06:49 06:49 06:49 WBC 7.3 RBC 4.15 L Hgb 13.7 Hct 40.7 MCV 98 H MCH 33.1 MCHC 33.7 RDW 14.3 H Plt Count 282 Seg Neutrophils % 60.3 Lymphocytes % 25.3 Monocytes % 9.7 Eosinophils % 3.8 Basophils % 0.9 Absolute Neutrophils 4.4 Absolute Lymphocytes 1.8 Absolute Monocytes 0.7 Absolute Eosinophils 0.3 Absolute Basophils 0.1 PT INR APTT Sodium 138.5 Potassium 4.5 Chloride 104 Carbon Dioxide 25 Anion Gap 10 BUN 10 Creatinine 0.99 Est GFR ( Amer) > 60 Est GFR (Non-Af Amer) > 60 Glucose 97 Calcium 9.5 Creatine Kinase CK-MB (CK-2) Troponin I 0.058 01/30/19 01/30/19 01/30/19 15:11 15:11 15:11 WBC 7.6 RBC 4.07 L Hgb 13.4 L Hct 40.4 MCV 99 H MCH 32.8 MCHC 33.1 RDW 14.1 H Plt Count 259 Seg Neutrophils % 75.1 Lymphocytes % 14.3 Monocytes % 8.8 Eosinophils % 0.8 Basophils % 1.0 Absolute Neutrophils 5.7 Absolute Lymphocytes 1.1 Absolute Monocytes 0.7 Absolute Eosinophils 0.1 Absolute Basophils 0.1 PT INR APTT Sodium Potassium Chloride Carbon Dioxide Anion Gap BUN Creatinine Est GFR ( Amer) Est GFR (Non-Af Amer) Glucose Calcium Creatine Kinase 533 H CK-MB (CK-2) Troponin I Cancelled 01/30/19 01/30/19 17:00 17:00 WBC RBC Hgb Hct MCV MCH MCHC RDW Plt Count Seg Neutrophils % Lymphocytes % Monocytes % Eosinophils % Basophils % Absolute Neutrophils Absolute Lymphocytes Absolute Monocytes Absolute Eosinophils Absolute Basophils PT 12.5 INR 0.94 APTT 35.2 Sodium Potassium Chloride Carbon Dioxide Anion Gap BUN Creatinine Est GFR ( Amer) Est GFR (Non-Af Amer) Glucose Calcium Creatine Kinase CK-MB (CK-2) 66.10 H Troponin I 21.700 Chest X-Ray 01/30/19 07:14 IMPRESSION: No evidence of acute intrathoracic disease. Patient is echocardiogram shows that all the apical LV segments are hypokinetic. LV ejection fraction is low normal at 55%. There is aortic stenosis with a peak gradient of 51 mmHg and mean gradient of 38 mmHg, with a calculated aortic valve area of 0.9 cm. There is moderate pulmonary hypertension by echo. Echo findings have been discussed with the patient. IMPRESSION/RECOMMENDATION: 1. Acute myocardial infarction: At present patient asymptomatic. Patient most likely has significant or multivessel coronary artery disease. Continue the patient on aspirin, full dose IV heparin, and beta-blockers. And sublingual nitroglycerin on a as needed basis. Would recommend transfer the patient for urgent cardiac catheterization. Note that the patient also has significant aortic stenosis. Hence he may not be a candidate for percutaneous intervention. He may be candidate for coronary artery bypass graft surgery and valve replacement. Further duration only after cardiac catheterization findings noted. As mentioned earlier patient declined to have cardiac catheterization here. Wants to be transferred to tertiary care center. This is being done arrangements have been made for the patient to be transferred. 2. Aortic stenosis: Moderate to severe: With a aortic valve area of 0.9 cm. Would need a right and left heart catheterization. 3. History of depression and PTSD. Seems to be stable continue his antidepressants. 4. History of tobacco abuse. Tobacco cessation counseling done 3 minutes spent on this. 5.? EtOH abuse. Would need further questioning of the patient to see exactly how much the patient drinks. Medications reviewed. Medications adjusted. Management plan discussed with the attending provider on the case. Also discussed with the patient patient's fianc. The patient is aware of the benefits and risks of transfer to tertiary care center. All questions answered. Cardiac catheterization procedure details have been explained to the patient in detail, including the risks and complications. Medical decision making is of high complexity. 40 minutes
--- NOTE | 2019-01-30 23:58 | EKG REPORT ---
SEVERITY:- ABNORMAL ECG - SINUS RHYTHM BORDERLINE PROLONGED QT INTERVAL RECENT ANTERIOR TN WITH T CHANGES IN LEADS V1 TO V3. : Confirmed by: Latrice Leblanc MD 30-Jan-2019 23:57:54
[2019-01-31] MEDS ORDERED: (PENDING PHARMACY ID) (Bupropion Hcl [Wellbutrin Xl 150 Mg 24hr Tablet] 150 MG) PO SCH (10:00)
== END 2019-01-30 21:24 | disposition short-term general hospital (02) ==
LOC: ER 07:03 → EH 08:32 → INTOOBSV 08:32 → 5 12:54
PROVIDERS: ADMIT Family Medicine; ATTEND Family Medicine
DX: I20.0 Unstable angina (principal); I35.0 Nonrheumatic aortic (valve) stenosis; I25.2 Old myocardial infarction; F17.210 Nicotine dependence, cigarettes, uncomplicated; F32.9 Major depressive disorder, single episode, unspecified; F43.10 Post-traumatic stress disorder, unspecified; F10.10 Alcohol abuse, uncomplicated; N52.9 Male erectile dysfunction, unspecified; Z82.49 Family history of ischemic heart disease and other diseases of the circulatory system; Z79.899 Other long term (current) drug therapy
CPT/HCPCS: 93005 ×2; 99285; 36415; 82553; 82550; 85025; 85610; 85730; 80048; 84484; 93306; 71045; 93010; G0378 ×2; J1644 ×2

== ENCOUNTER 2019-05-20 14:34 | Emergency (ER) | payer OTHER ==
--- NOTE | 2019-05-20 14:50 | ER Document Report ---
ED Medical Screen (RME) - General Chief Complaint: Shoulder Injury Stated Complaint: FALL Time Seen by Provider: 05/20/19 14:46 Mode of Arrival: Ambulatory Information source: Patient Notes: Patient presents emergency department with right shoulder pain. Reports he fell and landed on his shoulder. Possible dislocation noted denies allergies. Wiggles fingers good radial pulse obvious deformity. I have greeted and performed a rapid initial assessment of this patient. A comprehensive ED assessment and evaluation of the patient, analysis of test results and completion of the medical decision making process will be conducted by additional ED providers. Dictation of this chart was performed using voice recognition software; therefore, there may be some unintended grammatical errors . TRAVEL OUTSIDE OF THE [place] IN LAST 30 DAYS: No - Related Data Allergies/Adverse Reactions: No Known Allergies Allergy (Unverified 05/20/19 14:48) Past Medical History - Past Medical History Cardiac Medical History: Reports: Hx Heart Attack Renal/ Medical History: Denies: Hx Peritoneal Dialysis Psychiatric Medical History: Reports: Hx Depression Past Surgical History: Reports: Hx Herniorrhaphy, Hx Orthopedic Surgery Physical Exam - Vital signs Vitals: Temp Pulse Resp BP Pulse Ox 97.9 F 94 18 142/74 H 100 05/20/19 14:38 05/20/19 14:38 05/20/19 14:38 05/20/19 14:38 05/20/19 14:38 Course - Vital Signs Vital signs: Temp Pulse Resp BP Pulse Ox 97.9 F 94 18 142/74 H 100 05/20/19 14:38 05/20/19 14:38 05/20/19 14:38 05/20/19 14:38 05/20/19 14:38
[2019-05-20] MEDS ORDERED: OXYCODONE-ACETAMINOPHEN 5-325 MG TABLET PO ONE (15:07)
--- NOTE | 2019-05-20 15:48 | RADIOLOGY REPORT (SQ) ---
EXAM DESCRIPTION: SHOULDER RIGHT 2 OR MORE VIEWS COMPLETED DATE/TIME: 05/20/2019 3:18 pm REASON FOR STUDY: fall pain dislocated . Generalized shoulder pain. COMPARISON: None. NUMBER OF VIEWS: Three views. TECHNIQUE: Internal rotation, external rotation, and Y view images acquired of the right shoulder. LIMITATIONS: None. FINDINGS: MINERALIZATION: Normal. BONES: There is cortical irregularity at the distal right clavicle, may be secondary to prior trauma. Otherwise, no acute fracture is noted at the proximal right humerus. JOINTS: No dislocation. Degenerative changes are noted at the acromioclavicular joint. VISUALIZED LUNGS AND RIBS: No pneumothorax. No displaced rib fracture. SOFT TISSUES: There is an 11 mm tubular shaped radiopaque density overlying the proximal right clavic le. IMPRESSION: 1. Cortical irregularity at the distal right clavicle, may be secondary to prior trauma; please correlate with point tenderness to exclude superimposed acute injury. No acute fracture or dislocation at the proximal right humerus. 2. 11 mm tubular shaped radiopaque density overlying the proximal right clavicle; please correlate with clinical exam/history. TECHNICAL DOCUMENTATION: JOB ID: [id number] [email or web address]- All Rights Reserved Reading location - IP/workstation name: [email or web address]
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
--- NOTE | 2019-05-20 17:06 | RADIOLOGY REPORT (SQ) ---
EXAM DESCRIPTION: CHEST SINGLE VIEW COMPLETED DATE/TIME: 05/20/2019 4:33 pm REASON FOR STUDY: R/O FB seen on shoulder x-ray COMPARISON: None. EXAM PARAMETERS: NUMBER OF VIEWS: One view. TECHNIQUE: Single frontal radiographic view of the chest acquired. RADIATION DOSE: NA LIMITATIONS: None. FINDINGS: LUNGS AND PLEURA: No opacities, masses or pneumothorax. No pleural effusion. MEDIASTINUM AND HILAR STRUCTURES: No masses. Contour normal. HEART AND VASCULAR STRUCTURES: Heart normal in size. Normal vasculature. BONES: There appears to be a type 2 right acromioclavicular joint injury. The previously noted forei gn body is no longer demonstrated. HARDWARE: None in the chest. OTHER: No other significant finding. IMPRESSION: Nonvisualization of the previously described foreign body. Apparent type 2 right acromi oclavicular joint injury. TECHNICAL DOCUMENTATION: JOB ID: [id number] [employer]- All Rights Reserved Reading location - IP/workstation name: [email or web address]
[2019-05-20 17:33] VITALS: BP 132/87
== END 2019-05-20 17:30 | disposition home or self-care (01) ==
LOC: ER 14:34
DX: S43.101A Unspecified dislocation of right acromioclavicular joint, initial encounter (principal); M25.511 Pain in right shoulder; W19.XXXA Unspecified fall, initial encounter; F17.210 Nicotine dependence, cigarettes, uncomplicated; I25.2 Old myocardial infarction
CPT/HCPCS: 71045; 99283